=== PATIENT | female | born 1955 | race African-American/Black ===

== ENCOUNTER 2016-11-23 09:02 | Emergency (ER) | payer MEDICARE, OTHER ==
[~2016-11-23 09:02] MED LIST: *UNABLE1; AMARYL2 PO; AMIT25 PO; AMITIZA24 PO; ASABAYER PO; CIP5 PO; DIABETA5 PO; DSS PO; FLAG500TAB PO; FLEX PO; LEVAQUIN750 MG PO; LISINOPRIL PO; NASAL MOIST0.65 % NAS; OCEAN NAS; OPANA ER20 MG PO; ORAL DIABETES MED PO; PCET PO; PERCOCET1 TA4 PO; PR25 PO; PRIN10 PO; PRIN5 PO; XANAX1 MG PO
== END 2016-11-23 11:51 | disposition home or self-care (01) ==
LOC: ER 09:02
DX: R07.89 Other chest pain (principal); I10 Essential (primary) hypertension; E11.9 Type 2 diabetes mellitus without complications; Z79.899 Other long term (current) drug therapy; W19.XXXA Unspecified fall, initial encounter
CPT/HCPCS: 71020; 71100-LT; 99283; A9270-GY

== ENCOUNTER 2016-12-07 14:07 | Emergency (ER) | payer MEDICARE, OTHER ==
[2016-12-07 17:45] LABS: BASOPHILS 0.5 %; BASOPHILS ABSOLUTE 0.05 10/3/uL (0.0-0.16); EOSINOPHILS 1.3 %; EOSINOPHILS ABSOLUTE 0.13 10/3/uL (0.0-0.53); HEMATOCRIT 34.9 % (36.0-48.0); HEMOGLOBIN 11.5 g/dL (12.0-16.0); IMMATURE GRANULOCYTES 0.4 %; IMMATURE GRANULOCYTES ABSOLUTE 0.04 10/3/uL (0.0-0.11); LYMPHOCYTES 28.3 %; LYMPHOCYTES ABSOLUTE 2.77 10/3/uL (0.67-4.30); MEAN CORPUSCULAR HEMOGLOB 28.3 pg (26.0-34.0); MEAN CORPUSCULAR VOLUME 85.7 fL (80-100); MEAN PLATELET VOLUME 11.1 fL (9.2-13.0); MONOCYTES 4.5 %; MONOCYTES ABSOLUTE 0.44 10/3/uL (0.21-1.20); NEUTROPHILS ABSOLUTE 6.36 10/3/uL (2.02-8.40); RBC DISTRIBUTION WIDTH 13.3 % (12.0-16.0); RED CELL COUNT 4.07 10/6/uL (4.0-5.6); WHITE BLOOD CELLS 9.8 10/3/uL (4.5-10.5)
[2016-12-07 17:47] LABS: MANUAL DIFF NO %; PLATELET COUNT 268 10/3/uL (150-400)
[2016-12-07 18:00] LABS: A/G RATIO 0.8 (0.7-1.9); ALBUMIN 3.3 G/DL (3.5-5.0); CALCIUM, SERUM 8.7 MG/DL (8.5-10.4); CHLORIDE, SERUM 106 MMOL/L (96-112); CO2 (CARBON DIOXIDE) 23 MMOL/L (24-34); CREATININE 0.92 MG/DL (0.55-1.02); GFR AFRICAN AMERICAN 78 ML/MIN (>=60); GFR NON AFRICAN AMERICAN 68 ML/MIN (>=60); GLOBULIN 3.9 G/DL (2.5-4.1); SGPT(ALT) 10 U/L (5-65); SODIUM, SERUM 140 MMOL/L (135-148); TOTAL BILIRUBIN 0.5 MG/DL (0-1.2); TOTAL PROTEIN 7.2 G/DL (6.0-8.5)
[2016-12-07 18:02] LABS: ALKALINE PHOSPHATASE 108 U/L (45-117); BUN (BLOOD UREA NITROGEN) 11 MG/DL (6-23); GLUCOSE, SERUM 131 MG/DL (60-99); POTASSIUM, SERUM 4.2 MMOL/L (3.5-5.3); SGOT(AST) 17 U/L (5-40)
[2016-12-07 18:28] LABS: LACTATE 2.7 MMOL/L (0.3-2.4)
[2016-12-07] MEDS ORDERED: FLEXERIL5 MG PO (19:11)
[2016-12-07] MEDS ORDERED: NEUR400 PO (19:12)
[2016-12-07] MEDS ORDERED: NEUR800 PO (19:13)
[2016-12-07] MEDS ORDERED: TRAZ50 PO (19:14)
[2016-12-07 19:15] LABS: PROCALCITONIN < 0.05 ng/mL (<0.5)
[2016-12-07] MEDS ORDERED: PERCOCET 10/3251 TAB PO (19:15)
[2016-12-07 20:09] LABS: ASCORBIC ACID (UR NOT ORDER) NEG (NEG); BILIRUBIN, URINE NEGATIVE (NEG); ER URINALYSIS TAT 0 Hrs 21 Mins; KETONE, URINE NEGATIVE (NEG); LEUKOCYTE ESTERASE(NOT OR SMALL (NEG); NITRITE (URINE) NEG (NEG); WBC (NOT ORDERED) (RFLEX) 5 (0-5)
== END 2016-12-07 21:00 | disposition home or self-care (01) ==
LOC: ER 14:07
PROVIDERS: Emergency Medicine; Physician Assistant Medical
DX: R10.9 Unspecified abdominal pain (principal); G89.29 Other chronic pain; J44.9 Chronic obstructive pulmonary disease, unspecified; I10 Essential (primary) hypertension; E11.9 Type 2 diabetes mellitus without complications; F17.200 Nicotine dependence, unspecified, uncomplicated; Z79.899 Other long term (current) drug therapy
CPT/HCPCS: 71010; 74176; 80053; 81001; 83605; 83690; 84145; 85025; 87086; 96374; 96375; 99285; J1980; J2405